=== PATIENT | female | born 1990 | race Caucasian/White ===

== ENCOUNTER 2020-10-27 14:03 | Outpatient (REF) | payer OTHER, SELFPAY | END 2020-10-27 14:04 | disposition home or self-care (01) | LOC: HO.LNP 14:03 | PROVIDERS: Visit Provider Hospitalist | DX: Z20.822 Contact with and (suspected) exposure to COVID-19 (principal) | CPT/HCPCS: U0003; U0005 ==

== ENCOUNTER 2020-12-23 13:17 | Outpatient (REF) | payer OTHER, SELFPAY ==
[2020-12-24 09:21] LABS: CT PCR NOT DETECTED (Not Detect.); NG PCR NOT DETECTED (Not Detect.)
[2020-12-26 04:42] LABS: HPV mRNA E6/E7 rflx Not Detected (Not Detected)
== END 2020-12-23 13:18 | disposition home or self-care (01) ==
LOC: HO.LAB 13:17
PROVIDERS: Visit Provider Obstetrics & Gynecology
DX: Z01.419 Encounter for gynecological examination (general) (routine) without abnormal findings (principal); Z11.3 Encounter for screening for infections with a predominantly sexual mode of transmission; Z11.8 Encounter for screening for other infectious and parasitic diseases; Z11.51 Encounter for screening for human papillomavirus (HPV); G43.909 Migraine, unspecified, not intractable, without status migrainosus; Z72.0 Tobacco use
CPT/HCPCS: 87491; 87591; 87624; 88142

== ENCOUNTER → 2021-01-14 08:12 | Outpatient (BNVA) | payer OTHER, SELFPAY | PROVIDERS: Visit Provider Obstetrics & Gynecology | DX: Z30.430 Encounter for insertion of intrauterine contraceptive device (principal) | CPT/HCPCS: 81025 ==

== ENCOUNTER → 2021-02-10 08:31 | Outpatient (BNVA) | payer OTHER, SELFPAY | PROVIDERS: Visit Provider Obstetrics & Gynecology ==

== ENCOUNTER → 2022-04-05 14:32 | Outpatient (BNVA) | payer BC, SELFPAY | PROVIDERS: PCP Family Medicine; Visit Provider Obstetrics & Gynecology | DX: Z13.89 Encounter for screening for other disorder (principal) ==

== ENCOUNTER 2022-04-12 14:40 | Outpatient (REF) | payer BC, SELFPAY ==
--- NOTE | ~2022-04-12 | US_ITS ---
EXAMINATION: US PELVIS CLINICAL INFORMATION: Displacement of intrauterine contraceptive device COMPARISON: CT 05/07/2016 TECHNIQUE: Ultrasound of the pelvis is performed using both transabdominal and transvaginal transducers along with Doppler. Transvaginal imaging is performed due to inadequate visualization transabdominally. FINDINGS: Uterus: The uterus is anteverted and measures 8.6 x 3.2 x 6 cm. Nabothian cysts at the cervix. There is no abnormal endometrial thickening. IUD in place in normal position. The uterus is smooth in contour and has normal myometrial echogenicity. No visible fibroid. Adnexa: Both ovaries are visualized. There is normal color flow to the adnexa. There is no ovarian torsion. There is no pelvic ascites or fluid collection. Right ovary measures 4 x 1.8 x 3.6 cm. Left ovary measures 2.6 x 2 x 2.4 cm. US/US pelvic and transvaginal IMPRESSION: Normal pelvic ultrasound. Normal position of the IUD.
== END 2022-04-12 14:41 | disposition home or self-care (01) ==
LOC: HO.HMGCX 14:40
PROVIDERS: Visit Provider Obstetrics & Gynecology
DX: T83.32XA Displacement of intrauterine contraceptive device, initial encounter (principal)
CPT/HCPCS: 76830; 76856

== ENCOUNTER → 2022-05-04 14:47 | Outpatient (BNVA) | payer BC, SELFPAY | PROVIDERS: PCP Family Medicine; Visit Provider Obstetrics & Gynecology | DX: Z13.89 Encounter for screening for other disorder (principal) ==

== ENCOUNTER 2023-04-04 08:45 | Outpatient (AMB) | payer BC, SELFPAY ==
[2023-04-04 08:57] VITALS: BP 110/68; BMI 26.8
--- NOTE | 2023-04-04 08:57 | A.OFFVIS_ITS ---
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 No complaints. 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 Sexual orientation: Straight/Heterosexual Gender identity: Female Female Reproductive History Menstrual Age of Menarche: 11 Date of last menstrual period: 03/07/23 control method: progestin IUCD (Mirena 01/08) Total pregnancies: 2 Full term: 2 Number of Living Children: 2 Date of last pap smear: 12/23/20 (neg pap and hpv) Review of Systems Const All systems reviewed & are unremarkable except as noted in HPI and below Card Reports as per HPI Resp Reports as per HPI GI Reports as per HPI and Reports no additional complaints Reports as per HPI Physical Exam Vital Signs: Last Vital Signs BP 110/68 04/04/23 08:57 BMI result Body Mass Index 26.8 Const General: cooperative, healthy appearing and comfortable Chest Chest palpation & inspection: normal inspection of the chest and normal palpation of entire chest wall Breast/axilla inspection: normal inspection of the breasts and normal inspection of the axillae Breast/axilla palpation: normal palpation of the breasts, normal palpation of the axillae and no axillary lymphadenopathy Resp Effort & Inspection: normal respiratory effort Auscultation: clear to auscultation bilaterally Percussion: percussion normal Cardio Palpation: normal PMI Rate: regular rate Rhythm: regular rhythm Heart sounds: no murmurs and no rubs Peripheral pulses: Peripheral pulses 2+ throughout GI Inspection: Yes normal to inspection Palpation (GI): Soft to palpation, nontender, no guarding, not rigid and No hepatosplenomegaly present Percussion: Yes normal to percussion Auscultation: normal bowel sounds Rectal Exam - Female: deferred General: Yes bladder normal to palpation External Female Exam: No lesion Speculum Exam - Vagina: normal appearance of the vagina, normal palpation, normal vaginal discharge and not erythematous Speculum Exam - Cervix: normal appearance of the cervix and normal palpation Bimanual exam- vagina & uterus: normal bimanual exam, normal palpation, uterine size normal, bladder normal to palpation, consistency normal and normal palpation Bimanual Exam- Adnexa, other: normal adnexae, no masses and no tenderness Assessment & Plan Assessment & Plan (1) Well woman exam: Code(s): Z01.419 - Encounter for gynecological examination (general) (routine) without abnormal findings Plan: Cotesting not indicated this year. Counseled the patient about the recommended dietary allowance of 1000 mg of Calcium & 600 IU of vitamin D. The patient was instructed to perform monthly self-breast exams and to schedule an annual exam in a year; All questions answered and the patient verbalized understanding. Instructed the patient to schedule annual exam in a year Coding Level of Care Code Est Pt Prev Care 18-39y(26335) Diagnoses Well woman exam Z01.419
== END 2023-04-04 09:16 | disposition home or self-care (01) ==
LOC: HO.HWS 08:45
PROVIDERS: PCP Family Medicine; Visit Provider Obstetrics & Gynecology
DX: Z01.419 Encounter for gynecological examination (general) (routine) without abnormal findings (principal)
CPT/HCPCS: 99395

== ENCOUNTER → 2023-04-04 08:45 | Outpatient (BNVA) | payer BC, SELFPAY | PROVIDERS: PCP Family Medicine; Visit Provider Obstetrics & Gynecology ==

== ENCOUNTER → 2023-08-02 15:57 | Outpatient (AMB) | payer BC, SELFPAY ==
[2023-08-02 16:18] VITALS: BP 112/78; PULSE 86; O2SAT 98; BMI 25.0
--- NOTE | 2023-08-02 16:18 | MHC.PC.OV ---
Vital Signs 08/02/23 16:18 Height 5 ft 1 in Weight 132 lb 6 oz BMI 25.0 BP 112/78 Blood Pressure Location Lt brachial Position Sitting Pulse 86 Pulse Source Pulse Oximeter Pulse Oximetry (%) 98 Oxygen Delivery Method Room Air Intake Visit Reasons: PE Intake Note: Patient is here with concern of left ear pain in left ear. Is last menstrual period known: Yes Last menstrual period: 07/14/23 Allergies No Known Allergies [No Known Allergies*] Allergy (Verified 08/02/23 16:21) Medication List - Last Reconciled 08/02/23 by Thomas Falk MD levonorgestrel (Mirena) intrauterine Tobacco use date assessed: 08/02/23 Dental Screening Dental Screen Date: 08/02/23 Did you have a dental visit in the last 12 months?: Yes Did you have a dental problem in the last 6 months where you did not have access to dental care?: No Was dental information given to patient?: Patient has dentist HPI PE HPI Details New patient Prior PCP:?No recent PCP. Dr Miller. Last office visit/CPE: Acute issue(s): Ear itch. Depression screen + PMHx: Anxiety & Dep. Has therapist. difficulty focusing. SurgHx: . Appy. FHx: Mom: Bipolar d.o. EtOH. . Dad: EtOH. SocHx: 1ppd but quit 2021. EtOH None. 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 1. Little interest or pleasure in doing things: more than half the days 2. Feeling down, depressed, or hopeless: more than half the days 3. Trouble falling or staying asleep, or sleeping too much: not at all 4. Feeling tired or having little energy: more than half the days 5. Poor appetite or overeating: not at all 6. Feeling bad about yourself - or that you are a failure or have let yourself or your family down: several days 7. Trouble concentrating on things, such as reading the newspaper or watching television: nearly every day 8. Moving or speaking so slowly that other people could have noticed. Or the opposite - being so fidgety or restless that you have been moving around a lot more than usual: nearly every day 9. Thoughts that you would be better off or of hurting yourself in some way: not at all Total score: 13 Depression Screening Interpretation: Positive Depression Screening Done: Yes 73111 - PHQ-9 Billing: Yes Source: Developed by Drs. Davonte Larson, Any Rowell, Keaton Jones and colleagues, with an educational shanita from [employer]. Thrive Questionnaire Date Thrive assessed: 08/02/23 I am a: Patient What is your living situation today?: I have a steady place to live Within the past 12 months, did the food you bought not last and you didn't have the money to get more?: Never true Within the past 12 months, did you worry whether your food would run out before you got money to buy more?: Never true Do you have trouble paying for medicines?: No Do you have trouble getting transportation to medical appointments?: No Do you have trouble paying your heating and electricity bill?: No Do you have trouble taking care of your child, family member or friend?: No Do you have trouble with day-to-day activities such as bathing, preparing meals, shopping, managing finances, etc.?: No Are you currently unemployed and looking for a job?: No Are you interested in more education?: No THRIVE Score: 0 AUDIT C Alcohol Use Questionnaire (AUDIT-C) 1. How often do you have a drink containing alcohol?: Never 3. How often do you have six or more drinks on one occasion?: Never Total Score: 0 HUNG-7 AMB Questionnaire HUNG-7 Date HUNG - 7 assessed: 08/02/23 Feeling nervous, anxious, or on edge: 1 = Several days Not being able to stop or control worryin = Several days Worrying too much about different things: 1 = Several days Trouble relaxin = Several days Being so restless that it is hard to sit still: 2 = More than half the days Becoming easily annoyed or irritable: 1 = Several days Feeling afraid as if something awful might happen: 1 = Several days Total HUNG-7 score (0-4 normal; 5-9 mild; 10-14 moderate; 15-21 severe): 8 Source: Developed by Drs. Davonte Larson, Any Rowell, Keaton Jones and colleagues, with an educational shanita from [employer]. HUNG-7 Assessment Billing HUNG-7 Assessment Tool: HUNG-7 Assessment 86706 Review of Systems Const Denies chills, Denies fatigue, Denies fever(s), Denies headache(s) and Denies weakness ENT Denies dizziness and Denies headache(s) Card Denies chest pain, Denies lightheadedness, Denies dyspnea and Denies other (Palpitations) Resp Denies cough, Denies dyspnea, Denies wheezing and Denies other ( shortness of breath) Musc Denies numbness and Denies tingling Neuro Denies dizziness, Denies headache(s), Denies numbness, Denies tingling, Denies paresthesias and Denies weakness Psych Reports anxiety and Reports depression Endo Denies fatigue Aller/Immun Denies wheezing Physical exam (Primary Care) Vital Signs: Last Vital Signs Pulse 86 08/02/23 16:18 BP 112/78 08/02/23 16:18 Pulse Ox 98 08/02/23 16:18 Oxygen Delivery Method Room Air 08/02/23 16:18 BMI result Body Mass Index 25.0 Tobacco/Smoking Status: Tobacco use Status Tobacco use date assessed 08/02/23 08/02/23 16:25 Patient Tobacco Use Status Former Tobacco user 08/02/23 16:20 e-Cigarette/Vaping Use Never Used 08/02/23 16:25 PHQ-9: PHQ-9 Score PHQ-9: Total score 13 08/02/23 17:04 Depression Screening Interpretation: Positive Thrive Assessment: Date of Thrive Assessment Date Thrive assessed 08/02/23 08/02/23 16:33 Const General: no acute distress and well developed Nutritional Appearance: well nourished Orientation/consciousness: patient oriented x3 [facility] Head: Yes normocephalic and Yes atraumatic Eyes General: appearance normal, both eyes and all related structures Pupils: Equal, round and reactive pupils present EOM: EOMs intact bilaterally Resp Effort & Inspection: normal respiratory effort Auscultation: clear to auscultation bilaterally Cardio Rate: regular rate Rhythm: regular rhythm Heart sounds: S1 normal heart sound present, S2 normal heart sound present, no gallops, no murmurs and no rubs Neuro General: patient oriented x3 and gait normal Cranial nerves: Yes Equal, round and reactive pupils present Psych Affect: normal affect Assessment and Plan Assessment & Plan (1) Depression with anxiety: Code(s): F41.8 - Other specified anxiety disorders Plan: Depression?and?anxiety.??Patient?has?a?therapist. Has?tried?bupropion?in?the?past?which?he?said?did?not?help. Let?her?know?that?we?can?discuss?medication?at?some?point?if?she?would?like. As?family?history?of?bipolar?disorder (mom). Patient?also?notes?difficulty?concentrating?which?she?says?is?ADHD. Would?need?records?to?confirm?diagnosis?prior?to?starting?any?medications. (2) Ear discomfort: Code(s): H92.09 - Otalgia, unspecified ear Plan: Patient?notes?itch?at?left?ear.??No?pain Mild effusion?seen?at?right?ear.??Left?ear?may?have?mild?effusion?but?also?has?some?cerumen. No?evidence?of?pus?or?blood. Possible?serous?otitis?secondary?to?allergy?or?nasal?congestion. Will?give?her?a?script?for?Flonase. She?can?also?use?Debrox (3) Laboratory exam ordered as part of routine general medical examination: Code(s): Z00.00 - Encounter for general adult medical examination without abnormal findings Plan: Check?labs Orders: Orders Lipid Panel Today Z00.00 - Encounter for general adult medical examination without abnormal findings TSH reflex Free T4 Today Z00.00 - Encounter for general adult medical examination without abnormal findings HIV Ab/Ag Today Z11.3 - Encounter for screening for infections with a predominantly sexual mode of transmission Syphilis Screen Today Z11.3 - Encounter for screening for infections with a predominantly sexual mode of transmission Comprehensive [place]. Panel Fast Today Z00.00 - Encounter for general adult medical examination without abnormal findings Microalbumin, Random (w Creat) Today I10 - Essential (primary) hypertension UA and rflx microscopic Today Z00.00 - Encounter for general adult medical examination without abnormal findings CT NG by PCR Today Z11.3 - Encounter for screening for infections with a predominantly sexual mode of transmission Hepatitis B,C Profile Today Z11.3 - Encounter for screening for infections with a predominantly sexual mode of transmission Complete Blood Count Auto Diff Today Z00.00 - Encounter for general adult medical examination without abnormal findings Vitamin D 25-OH Total Today E55.9 - Vitamin D deficiency, unspecified Medications: New fluticasone propionate 50 mcg/actuation (Flonase Allergy Relief) administer into each nostril 1 spray intranasal Q12H 30 days 16 grams 2RF carbamide peroxide 6.5% (Debrox) 5 drps otic (ear) left DAILY 4 days 15 mL 1RF Coding Level of Care Code New Pt Level 3 (71294) Diagnoses Depression with anxiety F41.8 Ear discomfort H92.09 Laboratory exam ordered as part of routine general medical examination Z00.00 Additional Codes HUNG-7 Assessment Billing - HUNG-7 Assessment Tool: HUNG-7 Assessment [id number] ([id number])
== END ==
PROVIDERS: PCP Family Medicine; Visit Provider Family Medicine
DX: F41.8 Other specified anxiety disorders (principal); H92.09 Otalgia, unspecified ear
CPT/HCPCS: 99203

== ENCOUNTER 2023-08-16 10:48 | Outpatient (REF) | payer BC, SELFPAY ==
[2023-08-16 14:36] LABS: MANUAL DIFF FLAG NO
[2023-08-16 14:44] LABS: Appearance Urine Clear; Color Urine Yellow; Glucose Urine UA Negative (Negative); Leukocyte Esterase Urine Negative (Negative); Nitrite Urine Negative (Negative); Urine Blood Negative (Negative); Urine Ketones Negative (Negative); Urine Protein Negative (Neg-Trace)
[2023-08-16 15:00] LABS: Basophils Absolute Auto 0.1 X10*3/uL (0.0-0.2); Basophils Percent Auto 1.3 % (0-2); Eosinophils Absolute Auto 0.2 X10*3/uL (0.0-0.4); Eosinophils Percent Auto 3.3 % (0-4); Hematocrit 40.2 % (37.0-47.0); Hemoglobin 13.7 g/dl (12.0-16.0); Imm Gran Abs Auto 0.01 X10*3/uL (0.00-0.03); Imm Gran Pct Auto 0.2 % (0.0-0.4); Lymphocytes Absolute Auto 1.7 X10*3/uL (1.2-4.9); Lymphocytes Percent Auto 35.9 % (20-40); Mean Corpuscular HGB Conc 34.1 g/dl (31.0-35.0); Mean Corpuscular Hemoglobin 32.9 pg (27.0-33.0); Mean Corpuscular Volume 96.4 fL (80.0-98.0); Mean Platelet Volume 12.3 fL (9.4-12.3); Monocytes Absolute Auto 0.3 X10*3/uL (0.1-1.2); Monocytes Percent Auto 6.5 % (2-11); Neutrophils Absolute Auto 2.4 x10*3/uL (2.0-8.3); Neutrophils Percent Auto 52.8 % (45-73); Platelet Count 163 X10*3/uL (160-400); Red Blood Count 4.17 X10*6/uL (4.20-5.50); Red Cell Distribution Width 11.9 % (11.0-16.0); White Blood Count 4.6 X10*3/uL (4.8-10.8)
[2023-08-16 15:44] LABS: Creatinine Urine 42.64 mg/dL; Microalbumin Urine < 5.0 mg/L
[2023-08-16 15:57] LABS: Alanine Aminotransferase 8 U/L (0-31); Albumin Level 4.4 g/dL (3.5-5.0); Alkaline Phosphatase 58 U/L (39-117); Anion Gap 9 (12-20); Aspartate Amino Transferase 14 U/L (5-31); Bilirubin Total 0.4 mg/dL (0.0-1.0); Blood Urea Nitrogen 15 mg/dL (9-16); Calcium 9.3 mg/dL (8.4-10.2); Carbon Dioxide 28 mmol/L (22-29); Chloride 105 mmol/L (96-108); Cholesterol 179 mg/dL (<200); Estimated Glomerular Filt Rate > 60; Glucose Fasting 80 mg/dL (60-99); HDL Cholesterol 59 mg/dL (>40); LDL Cholesterol Calculated 113 mg/dL (<100); Potassium 4.4 mmol/L (3.3-5.1); Sodium 138 mmol/L (135-145); Total Protein 7.3 g/dL (6.5-8.0); Triglycerides 36 mg/dL (<150)
[2023-08-16 16:00] LABS: TSH reflex Free T4 2.08 uIU/mL (0.32-4.0)
[2023-08-17 09:09] LABS: Syphilis Screen Nonreactive (Nonreactive)
[2023-08-17 09:29] LABS: HBS Num1 1.94 mIU/mL (0-7.99); HBc Num1 0.07 S/CO (0.00-0.79); HBsAGNum1 0.41 S/CO (0.00-0.99); HIV AB/AG Nonreactive (Nonreactive); HIV Num 1 0.05 S/CO (0.00-0.99); Hepatitis B Core Antibody Nonreactive (Nonreactive); Hepatitis B Surface Antigen Negative (Negative); ~HepC Num1 0.08 S/CO (0.00-0.79); ~Hepatitis B Surface Antibody NONREACTIVE (Nonreactive); ~Hepatitis C Antibody Nonreactive (Nonreactive)
== END 2023-08-16 10:49 | disposition home or self-care (01) ==
LOC: HO.WFDLDS 10:48
PROVIDERS: Visit Provider Family Medicine
DX: Z00.00 Encounter for general adult medical examination without abnormal findings (principal); Z11.4 Encounter for screening for human immunodeficiency virus [HIV]; I10 Essential (primary) hypertension; E55.9 Vitamin D deficiency, unspecified; Z20.2 Contact with and (suspected) exposure to infections with a predominantly sexual mode of transmission
CPT/HCPCS: 36415; 80053; 80061; 81003; 82043; 82306; 82570; 84443; 85025; 86704; 86706; 86780; 86803; 87340; 87389

== ENCOUNTER 2024-11-06 09:59 | Outpatient (AMB) | payer BC, SELFPAY ==
--- NOTE | 2024-11-06 10:05 | A.OFFVIS_ITS ---
Vital Signs 11/06/24 10:11 Height 5 ft 1 in Weight 140 lb BMI 26.4 BP 92/62 Intake Visit Reasons: annual/donotrisX3 Management Analyst Required: No Accompanied by: Self / Same As Patient Allergies No Known Allergies (No Known Allergies*) Allergy (Verified 11/06/24 10:11) Is last menstrual period known: Yes Last menstrual period: 10/19/24 HPI Comments Details: Presenting for annual exam. No complaints. Last Pap/HPV was negative in 01/08 [facility] Medical History Migraine headache without aura Surgical History [place] teeth extracted Hx of appendectomy Hx of section Family History Mother Ovarian cancer Substance abuse Mental health disorder Maternal Grandmother Ovarian cancer Maternal Grandfather Substance abuse Paternal Grandfather Substance abuse Father Substance abuse Social History Household Members: Family and Children Housing: Apartment Alcohol intake: never Patient Tobacco Use Status: Former Tobacco user e-Cigarette/Vaping Use: Never Used Current occupational status: employed 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 Sexually active: Yes Sexual orientation: Straight/Heterosexual Gender identity: Female Cognitive needs: No Hearing needs: No Vision needs: Yes (Patient wears contacts) Female Reproductive History Menstrual Age of Menarche: 11 Duration of menses: 6-7 days (7-8 days) Date of last menstrual period: 10/19/24 Total pregnancies: 2 Full term: 2 Number of Living Children: 2 Date of last pap smear: 12/24/20 (negative papsmear ) History of abnormal pap smear: No Review of Systems Const All systems reviewed & are unremarkable except as noted in HPI and below Card Reports as per HPI Resp Reports as per HPI GI Reports as per HPI and Reports no additional complaints Reports as per HPI Physical Exam Vital Signs: Last Vital Signs BP 92/62 11/06/24 10:11 BMI result Body Mass Index 26.4 Const General: cooperative, healthy appearing and comfortable Chest Chest palpation & inspection: normal inspection of the chest and normal palpation of entire chest wall Breast/axilla inspection: normal inspection of the breasts and normal inspection of the axillae Breast/axilla palpation: normal palpation of the breasts, normal palpation of the axillae and no axillary lymphadenopathy Resp Effort & Inspection: normal respiratory effort Auscultation: clear to auscultation bilaterally Percussion: percussion normal Cardio Palpation: normal PMI Rate: regular rate Rhythm: regular rhythm Heart sounds: no murmurs and no rubs Peripheral pulses: Peripheral pulses 2+ throughout GI Inspection: Yes normal to inspection Palpation (GI): Soft to palpation, nontender, no guarding, not rigid and No hepatosplenomegaly present Percussion: Yes normal to percussion Auscultation: normal bowel sounds Rectal Exam - Female: deferred General: Yes bladder normal to palpation External Female Exam: No lesion Speculum Exam - Vagina: normal appearance of the vagina, normal palpation, normal vaginal discharge and not erythematous Speculum Exam - Cervix: normal appearance of the cervix and normal palpation Bimanual exam- vagina & uterus: normal bimanual exam, normal palpation, uterine size normal, bladder normal to palpation, consistency normal and normal palpation Bimanual Exam- Adnexa, other: normal adnexae, no masses and no tenderness Assessment & Plan Assessment & Plan (1) Well woman exam: Code(s): Z01.419 - Encounter for gynecological examination (general) (routine) without abnormal findings Category: Medical Plan: Cotesting not indicated this year. Counseled the patient about the recommended dietary allowance of 1000 mg of Calcium & 600 IU of vitamin D. The patient was instructed to perform monthly self-breast exams and to schedule an annual exam in a year; All questions answered and the patient verbalized understanding. Instructed the patient to schedule annual exam in a year Coding Level of Care Code Est Pt Level 3 (65680) Est Pt Prev Care 18-39y(57816) Diagnoses Well woman exam Z01.419
[2024-11-06 10:11] VITALS: BP 92/62; BMI 26.4
== END 2024-11-06 10:32 | disposition home or self-care (01) ==
LOC: HO.HWS 10:00
PROVIDERS: PCP Family Medicine; Visit Provider Obstetrics & Gynecology
DX: Z01.419 Encounter for gynecological examination (general) (routine) without abnormal findings (principal)
CPT/HCPCS: 99395; 99459

== ENCOUNTER 2025-03-11 09:26 | Outpatient (REF) | payer BC, SELFPAY ==
[2025-03-11 15:17] LABS: MANUAL DIFF FLAG NO
[2025-03-11 15:29] LABS: Appearance Urine Clear; Glucose Urine UA Negative (Negative); PH 6.5 (5.0-9.0); Specific Gravity - Urine 1.010 (1.005-1.025)
[2025-03-11 15:34] LABS: Hematocrit 44.5 % (37.0-47.0); Hemoglobin 14.6 g/dl (12.0-16.0); Imm Gran Abs Auto 0.01 X10*3/uL (0.00-0.03); Imm Gran Pct Auto 0.2 % (0.0-0.4); Lymphocytes Absolute Auto 1.1 X10*3/uL (1.2-4.9); Mean Corpuscular HGB Conc 32.8 g/dl (31.0-35.0); Mean Corpuscular Hemoglobin 31.3 pg (27.0-33.0); Mean Corpuscular Volume 95.5 fL (80.0-98.0); NRBC Abs Auto 0.000 X10*3/uL (0.0-0.012); NRBC Pct Auto 0.0 /100WBC (0.0-0.2); Platelet Count 226 X10*3/uL (160-400); Red Blood Count 4.66 X10*6/uL (4.20-5.50); White Blood Count 5.0 X10*3/uL (4.8-10.8)
[2025-03-11 16:24] LABS: Alanine Aminotransferase 11 U/L (0-31); Albumin Level 4.8 g/dL (3.5-5.0); Alkaline Phosphatase 70 U/L (39-117); Anion Gap 14 (12-20); Aspartate Amino Transferase 22 U/L (5-31); Blood Urea Nitrogen 15 mg/dL (9-16); Calcium 9.7 mg/dL (8.4-10.2); Carbon Dioxide 24 mmol/L (22-29); Chloride 104 mmol/L (96-108); Cholesterol 184 mg/dL (<200); Estimated Glomerular Filt Rate > 60; HDL Cholesterol 58 mg/dL (>40); Iron 124 mcg/dL (30-160); Percent Iron Saturation 43 % (15-50); Potassium 4.8 mmol/L (3.3-5.1); Sodium 137 mmol/L (135-145); Total Iron Binding Capacity 291 mcg/dL (228-428); Total Protein 7.6 g/dL (6.5-8.0); Triglycerides 43 mg/dL (<150); Unsaturated Iron Binding 167 ug/dL
[2025-03-11 17:02] LABS: Folate 6.3 ng/mL (> or = 4.0); Vitamin B12 723 pg/mL (200-900)
== END 2025-03-11 09:27 | disposition home or self-care (01) ==
LOC: HO.WFDLDS 09:26
PROVIDERS: PCP Family Medicine; Visit Provider Family Medicine
DX: Z00.00 Encounter for general adult medical examination without abnormal findings (principal); E55.9 Vitamin D deficiency, unspecified; I10 Essential (primary) hypertension; F41.8 Other specified anxiety disorders; E53.8 Deficiency of other specified B group vitamins; Z13.31 Encounter for screening for depression; Z13.39 Encounter for screening examination for other mental health and behavioral disorders
CPT/HCPCS: 36415; 80053; 80061; 81003; 82043; 82306; 82570; 82607; 82746; 83540; 84443; 85025; 96127

== ENCOUNTER 2025-03-11 09:26 | Outpatient (AMB) | payer BC, SELFPAY ==
--- NOTE | 2025-03-11 09:36 | MHC.PC.OV ---
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 Has not had any recent labs and would like to get these done today. She is fasting. Now has a therapist in [place] who is managing her anxiety and difficulty concentrating with medication. She is taking fluoxetine and also methylphenidate. 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 1. Little interest or pleasure in doing things: several days 2. Feeling down, depressed, or hopeless: several days 3. Trouble falling or staying asleep, or sleeping too much: not at all 4. Feeling tired or having little energy: several days 5. Poor appetite or overeating: several days 6. Feeling bad about yourself - or that you are a failure or have let yourself or your family down: not at all 7. Trouble concentrating on things, such as reading the newspaper or watching television: several days 8. Moving or speaking so slowly that other people could have noticed. Or the opposite - being so fidgety or restless that you have been moving around a lot more than usual: not at all 9. Thoughts that you would be better off or of hurting yourself in some way: not at all Total score: 5 Depression Screening Interpretation: Positive Depression Screening Follow-up: In treatment Depression Screening Done: Yes 49247 - PHQ-9 Billing: Yes Source: Developed by Drs. Davonte Larson, Any Rowell, Keaton Jones and colleagues, with an educational shanita from [employer]. Thrive Questionnaire Date Thrive assessed: 08/02/23 I am a: Patient What is your living situation today?: I have a steady place to live Within the past 12 months, did the food you bought not last and you didn't have the money to get more?: Never true Within the past 12 months, did you worry whether your food would run out before you got money to buy more?: Never true Do you have trouble paying for medicines?: No Do you have trouble getting transportation to medical appointments?: No Do you have trouble paying your heating and electricity bill?: No Do you have trouble taking care of your child, family member or friend?: No Do you have trouble with day-to-day activities such as bathing, preparing meals, shopping, managing finances, etc.?: No Are you currently unemployed and looking for a job?: No Are you interested in more education?: No Please select the resources that you would like help with: None Currently or been in a relationship where the following occur: I choose not to answer THRIVE Score: 0 AUDIT C Alcohol Use Questionnaire (AUDIT-C) 1. How often do you have a drink containing alcohol?: Never Total Score: 0 HUNG-7 AMB Questionnaire HUNG-7 Date HUNG - 7 assessed: 03/11/25 Feeling nervous, anxious, or on edge: 1 = Several days Not being able to stop or control worryin = More than half the days Worrying too much about different things: 2 = More than half the days Trouble relaxin = More than half the days Being so restless that it is hard to sit still: 1 = Several days Becoming easily annoyed or irritable: 1 = Several days Feeling afraid as if something awful might happen: 1 = Several days Total HUNG-7 score (0-4 normal; 5-9 mild; 10-14 moderate; 15-21 severe): 10 Source: Developed by Drs. Davonte Larson, Any Rowell, Keaton Jones and colleagues, with an educational shanita from [employer]. HUNG-7 Assessment Billing HUNG-7 Assessment Tool: HUNG-7 Assessment 40939 Review of Systems Const Denies chills, Denies fatigue, Denies fever(s), Denies headache(s) and Denies weakness ENT Denies dizziness and Denies headache(s) Card Denies chest pain, Denies lightheadedness, Denies dyspnea and Denies other (Palpitations) Resp Denies cough, Denies dyspnea, Denies wheezing and Denies other ( shortness of breath) Musc Denies numbness and Denies tingling Neuro Denies dizziness, Denies headache(s), Denies numbness, Denies tingling, Denies paresthesias and Denies weakness Psych Reports anxiety and Denies depression Endo Denies fatigue Aller/Immun Denies wheezing Physical exam (Primary Care) Vital Signs: Last Vital Signs Temp 97.8 F 03/11/25 09:43 Pulse 85 03/11/25 09:43 Resp 16 03/11/25 09:43 BP 106/60 03/11/25 09:43 Pulse Ox 97 03/11/25 09:43 Oxygen Delivery Method Room Air 03/11/25 09:43 BMI result Body Mass Index 26.7 Tobacco/Smoking Status: Tobacco use Status Tobacco use date assessed 03/11/25 03/11/25 09:47 Patient Tobacco Use Status Former Tobacco user 03/11/25 09:37 e-Cigarette/Vaping Use Never Used 03/11/25 09:37 PHQ-9: PHQ-9 Score PHQ-9: Total score 5 03/11/25 09:47 Depression Screening Interpretation: Positive Depression Screening Follow-up: In treatment Thrive Assessment: Date of Thrive Assessment Date Thrive assessed 08/02/23 03/11/25 09:37 Currently or been in a relationship where the following occur: I choose not to answer Const General: no acute distress and well developed Nutritional Appearance: well nourished Orientation/consciousness: patient oriented x3 HENMT Head: Yes normocephalic and Yes atraumatic Eyes General: appearance normal, both eyes and all related structures Pupils: Equal, round and reactive pupils present EOM: EOMs intact bilaterally Resp Effort & Inspection: normal respiratory effort Auscultation: clear to auscultation bilaterally Cardio Rate: regular rate Rhythm: regular rhythm Heart sounds: S1 normal heart sound present, S2 normal heart sound present, no gallops, no murmurs and no rubs Neuro General: patient oriented x3 and gait normal Cranial nerves: Yes Equal, round and reactive pupils present Psych Other: Mildly anxious affect. Pleasant and cooperative. Affect: Anxious affect present Coding Level of Care Code Est Pt Level 3 (31009) Diagnoses Depression with anxiety F41.8 Additional Codes HUNG-7 Assessment Billing - HUNG-7 Assessment Tool: HUNG-7 Assessment 27843 ([id number]) PHQ-9 - 08314 - PHQ-9 Billing: Yes ([id number]) Assessment & Plan Assessment & Plan (1) Depression with anxiety: Code(s): F41.8 - Other specified anxiety disorders Category: Medical Plan: Ongoing depression and anxiety as well as difficulty concentrating. Now followed by a provider in [place] and is on fluoxetine and methylphenidate. Continue following up with the above provider Plan She will get labs drawn today. We can follow-up on these and get her scheduled for a physical. Orders: Orders Complete Blood Count Auto Diff Today Z00.00 - Encounter for general adult medical examination without abnormal findings Lipid Panel Today Z00.00 - Encounter for general adult medical examination without abnormal findings TSH reflex Free T4 Today Z00.00 - Encounter for general adult medical examination without abnormal findings Vitamin B12 and Folate Today E53.8 - Deficiency of other specified B group vitamins Comprehensive [place]. Panel Fast Today Z00.00 - Encounter for general adult medical examination without abnormal findings Microalbumin, Random (w Creat) Today I10 - Essential (primary) hypertension UA CC w/rflx Micro + Cult Today Z00.00 - Encounter for general adult medical examination without abnormal findings Vitamin D 25-OH Total Today E55.9 - Vitamin D deficiency, unspecified IRON PROFILE Today F41.8 - Other specified anxiety disorders
[2025-03-11 09:43] VITALS: BP 106/60; PULSE 85; RESP 16; TEMP 36.6; O2SAT 97; BMI 26.7
== END 2025-03-11 10:24 | disposition home or self-care (01) ==
LOC: HO.HMCFM 09:27
PROVIDERS: PCP Family Medicine; Visit Provider Family Medicine
DX: F41.8 Other specified anxiety disorders (principal)

== ENCOUNTER 2025-03-14 11:17 | Emergency (ER) | payer BC, SELFPAY ==
[2025-03-14 11:20] VITALS: BP 150/75; PULSE 117; RESP 18; TEMP 36.6; O2SAT 98; BMI 26.4
--- NOTE | 2025-03-14 11:20 | ED_ITS ---
HPI - General Adult General Chief complaint: Anxiety Stated complaint: anxiety Time Seen by Provider: 03/14/25 11:39 History of Present Illness ED Provider: Rosa Maria Sanchez NP HPI narrative: Areas of relative female medical history significant for severe anxiety, dep ression currently on Ritalin, Prozac that was started about 2 weeks ago by her new therapist presents to the ED for evaluation reporting an episode of significant anxiety that has been ongoing now for greater than 12 hours. Reports it will not resolve on its own. Patient reports that she woke up in the middle of the night feeling very anxious. She reports that she keeps getting little moments of the anxiety, which creates some chest discomfort. There was no substernal chest pain or pressure, palpitations, shortness of breath or abdominal pain. She reports that upon awakening in the middle of the evening she also had an episode of diarrhea, nonbloody, nonbilious. Denies any fever or chills. No urinary complaints. She denies any SI/HI. Related Data Home Medications ?Medication ?Instructions ?Recorded ?Confirmed levonorgestrel (Mirena) intrauterine 08/02/23 fluoxetine 20 mg capsule (Prozac) 20 mg PO DAILY 03/11 methylphenidate HCl 18 mg 18 mg PO QAM 03/11/25 tablet,extended release 24 hr ondansetron HCl 4 mg tablet 4 - 8 mg PO DAILY PRN naus ea 03/11/25 Previous Rx's ?Medication ?Instructions ?Recorded lorazepam 1 mg tablet (Ativan) 1 mg PO DAILY PRN anxie ty 10 days 03/14/25 #10 tabs Allergies Allergy/AdvReac Type Severity Reaction Status Date / Time No Known Allergies (No Known Allergy Verified 03/14/25 11:22 Allergies*) Review of Systems Review of Systems: ROS is otherwise negative unless mentioned in HPI. [facility] Past Medical History Medical History Migraine headache without aura Surgical History [place] teeth extracted Hx of appendectomy Hx of section Family History Family History Mother Ovarian cancer Substance abuse Mental health disorder Maternal Grandmother Ovarian cancer Maternal Grandfather Substance abuse Paternal Grandfather Substance abuse Father Substance abuse Social History Social History Household Members: Family and Children Housing: Apartment Alcohol intake: never Patient Tobacco Use Status: Former Tobacco user e-Cigarette/Vaping Use: Never Used Advance Directives: No Advance Directives Information Provided: No Do you have a plan to hurt others: No Plan service: No Current occupational status: employed 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 Constitutional: Well-appearing, NAD. Alert. Oriented X3. Eyes: EOMI. ENT: Pharynx normal. Neck: Normal inspection. Neck supple. CVS: Normal heart rate and rhythm. Pulses normal. Respiratory: No respiratory distress. Breath sounds normal. Abdomen: Soft, nontender, nondistended. Skin: Skin warm and dry. Normal skin color. Extremities: No lower extremity edema. Neuro: Oriented X 3. No motor deficit. Psych: Denies SI/HI. Teary. Vital Signs: Vital Signs - 24 hr 03/14/25 11:20 Temperature 98 F Pulse Rate 117 H Respiratory Rate 18 Blood Pressure 150/75 H Pulse Oximetry 98 Oxygen Delivery Method Room Air BMI result Body Mass Index 26.4 Course Course Course Narrative: This is a Rapid Medical Examination (RME) performed by Flaco Fountain PA-C in triage. Full HPI, ROS, assessment and treatment plan per primary provider in the Main ED. Hx: 34 yo F here for eval of inc anxiety x last night. started new anxiety meds 1 mo ago which she felt were helping, woke up from her sleep last night and felt panicked. reports full body panic attack . felt dizzy and had an episode of diarrhea. she takes fluoxetine and ritalin. had blood work on 03/11/25 w/ PCP. PE/vitals: tearful in triage. Plan: ekg Medications Administered Discontinued Medications Generic Name Dose Route Start Last Admin Trade Name Freq PRN Reason Stop Dose Admin Lorazepam 1 mg 03/14/25 12:10 03/14/25 12:22 Lorazepam 1 Mg Tablet PO 03/14/25 12:11 1 mg ONCE ONE Administration Medical Decision Making Medical Decision Making [facility] Narrative: Upon my initial assessment with the patient, she is alert, oriented, answering all questions appropriately. She did become mildly tearful on exam, reporting severe anxiety that will not stop. EKG is nonischemic. I do not believe any acute medical problem was underlying, though I do believe she would be experiencing some physical symptoms due to anxiety. She has been on Ritalin, Prozac for 2 weeks. She likely is not feeling the full effects yet. For her severe anxiety episode, I will give her a dose of oral Ativan while in the ED and reassess. We will rule underlying viral pathology, which can be contributing to the anxiety attack. She denies any SI, HI. is at bedside. 2:10 PM-- she feels much better after the Ativan dose. I will send a prescription for this medication with a quantity of 10 tabs to be used only as an for severe anxiety attacks, and this should fill the next by Psychiatry or PCP. She is agreeable with this. She also asked me to look in both of her ears, which appear normal to me, the TM is mildly erythematous on the left, and the TM is fine on the right, there is significant cerumen I do recommend [id number] Debrox. She, her are agreeable to plan of care. No indication for additional workup. We will proceed with discharge plan. Differential Diagnosis Differential Diagnoses: The differential diagnosis associated with the presentation includes Anxiety, depression, SI, HI Admission/Observation Consideration of admission/observation: Escalation of care including admission/observation considered Not indicated Lab Data [facility] Lab Attestation statement: I reviewed the patient's lab results. Urinalysis negative for , negative for induction. Labs: Lab Results 03/14/25 Range/Units 12:08 Urine Color Yellow Urine Appearance Clear Urine pH 7.5 (5.0-9.0) Ur Specific [place] <= 1.005 (1.005-1.025) Urine Protein Negative (Neg-Trace) mg/dL Urine Glucose (UA) Negative (Negative) mg/dL Urine Ketones Negative (Negative) mg/dL Urine Blood Negative (Negative) Urine Nitrite Negative (Negative) Ur Leukocyte Esterase Negative (Negative) Urine Test NEGATIVE (NEGATIVE) Influenza Type A (PCR) NEGATIVE (Negative) Influenza Type B (PCR) NEGATIVE (Negative) RSV RNA Qual (PCR) NEGATIVE (Negative) SARS-CoV-2 RNA (RT-PCR) NEGATIVE (Negative) Independent Interpretation I performed an independent interpretation of an: EKG Interpretation: Rate: 88 Rhythm: NSR [place]: 72/44/41 Normal P waves. Normal NOHEMI. Normal QRS complex. ST T wave : no dep, elev qTC: 425 prior studies: no previous available for comparison. The study has been interpreted contemporaneously by me. Independent Historian Clinical information obtained from an independent historian. History obtained from or confirmed by: Spouse External Record Review External record reviewed: Outside ED record Chronic Conditions Patient?s care impacted by: Other (Severe anxiety) Social Determinants Patient?s care significantly limited by Social Determinants of Health including: Problems related to primary support group Discharge Plan Discharge Clinical Impression: Anxiety attack Patient Disposition: Home, Self-Care Instructions: Anxiety (ED) Additional Instructions: You were seen here today for anxiety. Your workup was overall reassuring. This included an EKG, as well as urinalysis, and viral panel. For anxiety, we gave you a dose of Ativan while in the ED. I do recommend that you take this medication only as needed for severe anxiety. I have prescribed you a quantity of 10 tablets. You will need to see your psychiatrist, PCP for additional refills. Please discuss with them that you were in the ER today. It is important to have appropriate follow up care. With any worsening complaints, return back to the ED for additional assessment. Prescriptions: New lorazepam [Ativan] 1 mg tablet 1 mg PO DAILY PRN (Reason: anxiety) 10 Days Qty: 10 0RF No Action Mirena 21 mcg/24 hours (8 yrs) 52 mg intrauterine device intrauterine fluoxetine [Prozac] 20 mg capsule 20 mg PO DAILY ondansetron HCl 4 mg tablet 4 - 8 mg PO DAILY PRN (Reason: nausea) methylphenidate HCl 18 mg tablet extended release 24hr 18 mg PO QAM Referrals: Thomas Falk MD [Primary Care Provider, Internal Medicine] Print Language: Nepali
--- NOTE | 2025-03-14 11:23 | ECG_ITS ---
Test Reason : ANXIETY Blood Pressure : */* mmHG Vent. Rate : 88 BPM Atrial Rate : 88 BPM P-R Int : 156 ms QRS Dur : 74 ms QT Int : 352 ms P-R-T Axes : 72 44 41 degrees QTcB Int : 425 ms Normal sinus rhythm with sinus arrhythmia Possible Left atrial enlargement Borderline ECG No previous ECGs available Referred By: Renée Fountain Electronically Signed By: ALEX ROYAL MD
[2025-03-14 12:15] LABS: Appearance Urine Clear; Glucose Urine UA Negative (Negative); PH 7.5 (5.0-9.0); Specific Gravity - Urine <= 1.005 (1.005-1.025)
[2025-03-14 12:16] LABS: UPreg QC Valid YES
[2025-03-14 12:52] LABS: Resp Syncy Virus RNA Qual PCR NEGATIVE (Negative); SARS COV2 PCR INHOUSE NEGATIVE (Negative)
[2025-03-14 14:42] VITALS: BP 150/75; PULSE 117; RESP 18; TEMP 36.6; O2SAT 98
== END 2025-03-14 14:42 | disposition home or self-care (01) ==
PROVIDERS: Nurse Practitioner; Emergency Provider Emergency Medicine; PCP Family Medicine
DX: F41.9 Anxiety disorder, unspecified (principal); R07.89 Other chest pain; Z87.891 Personal history of nicotine dependence; Z79.899 Other long term (current) drug therapy; Z03.818 Encounter for observation for suspected exposure to other biological agents ruled out
CPT/HCPCS: 81003; 81025; 87637; 93005; 99283

== ENCOUNTER → 2025-03-14 11:23 | Outpatient (BNV) | payer BC, SELFPAY | PROVIDERS: Emergency Provider Emergency Medicine; PCP Family Medicine; Visit Provider Internal Medicine Cardiovascular Disease | DX: F41.9 Anxiety disorder, unspecified (principal) | CPT/HCPCS: 93010 ==